=== PATIENT | female | born 1985 | race Caucasian/White ===

== ENCOUNTER 2019-06-19 12:22 | Emergency (ER) | payer OTHER, SELFPAY ==
[~2019-06-19] VITALS: Ht 165.1 cm; Wt 90.1 kg
[2019-06-19 12:56] VITALS: BP 143/76
[2019-06-19] MEDS ORDERED: DEXAMETHASONE 4 MG TABLET PO ONE (13:30)
[2019-06-19] MEDS ORDERED: DEXAMETHASONE 4 MG TABLET ONE (14:43)
== END 2019-06-19 14:55 | disposition home or self-care (01) ==
LOC: ED 14:30
DX: J02.0 Streptococcal pharyngitis (principal)
CPT/HCPCS: 99282